=== PATIENT | male | born 1985 | race Caucasian/White ===

== ENCOUNTER 2016-08-23 19:03 | Emergency (ER) | payer BC ==
--- NOTE | ~2016-08-23 | CT71 ---
[facility] A Service of [facility] RADIOLOGY TEXT RESULTS PATIENT: SOTERO HAYNES LOCATION: [facility] : [birth year] UNIT #: [id number] AGE: [address]: Ella Landrum MD SEX: M ORDER DR: [id number] [facility] [place] [facility]. [place], [place] [address] [id number] MR#: [id number] Acc #: [id number] NAME: SOTERO HAYNES : 1985 SEX: M STUDY DATE/TIME: 08/23/2016 19:00 UNIT: [facility] ROOM: STUDY DESCRIPTION: CT Head Wo Contrast Attending Physician: Ella Landrum M.D. Ordering Physician: Samy Sebastian M.D. Primary Care Physician: Hien Jimenez Aprn MEDICAL IMAGING REPORT This report is preliminary unless electronic signature is present EXAM CT brain without contrast HISTORY Hallucinations for 2 months. Headache. TECHNIQUE Axial noncontrast images were obtained from the skull base to the vertex. This CT exam was performed with one or more of the following radiation dose reduction techniques: automatic exposure control, adjustment of mA and/or kV according to patient size, and iterative reconstruction. FINDINGS Ventricular size and configuration are normal. There is no evidence of acute infarct or hemorrhage. There are no extraaxial fluid collections. No mass lesion or mass effect is seen. There are no skull fractures. IMPRESSION Normal noncontrast head CT. Dictated by... José Miguel Lorenzana M.D. THIS IS AN ELECTRONICALLY VERIFIED REPORT José Miguel Lorenzana M.D. at 08/24/2016 3:55 PM DFL/bd TD: 08/24/2016 07:44 JOB #: [id number] [facility] A Service of [facility] RADIOLOGY TEXT RESULTS PATIENT: SOTERO HAYNES LOCATION: [facility] : 85 UNIT #: [id number] AGE: [address]: Ella Landrum MD SEX: M ORDER DR: MEDICAL IMAGING REPORT Page 1 of 1 COPY
--- NOTE | ~2016-08-23 | EKG ---
PATIENT: SOTERO HAYNES UNIT #: [id number] Ventricular Rate: 118 BPM Atrial Rate: 118 BPM P-R Interval: 170 ms QRS Duration: 88 ms Q-T Interval: 316 ms QTC Calculation(Bezet): 442 ms P [place]: 38 degrees Calculated R [place]: 0 degrees Calculated T [place]: 29 degrees Diagnosis Line: Sinus tachycardia Diagnosis Line: Inferior infarct , age undetermined Diagnosis Line: Abnormal ECG Baseline wander Diagnosis Line: No previous ECGs available Diagnosis Line: Confirmed by CALEB HILARIO MD ([id number]) on 08/23/2016 Diagnosis Line: 11:07:25 PM INTERPRETING MD: SULAIMAN BEAUCHAMP
[~2016-08-23 19:03] MED LIST: NAPROSYN375 MG PO; PHENERGAN25 MG PO; PRILOSEC PO; VICODIN 5/500 T1 TAB PO; WAL-ITIN10 MG/TAB PO
[2016-08-23 19:33] LABS: BASOPHIL% 0.3 % (0-2.5); EOSINOPHIL# 0.3 X10e3 (0-0.7); EOSINOPHIL% 1.9 % (0.0-7.0); HEMATOCRIT 45.8 % (38.0-50.0); HEMOGLOBIN 15.3 gm/dL (13.0-16.0); LYMPHOCYTE# 2.7 X10e3 (1.0-3.5); LYMPHOCYTE% 20.9 % (17.0-45.0); MEAN CELL VOLUME 85.3 FL (83-96); MEAN CORPUSCULAR HEMOGLOBIN 28.5 PG (28-34); MEAN CORPUSCULAR HGB CONC 33.4 g/dL (30-36); MEAN PLATELET VOLUME 7.3 FL (6.5-11.5); MONOCYTE# 1.1 X10e3 (0-1.0); NEUTROPHIL% 68.9 % (40-75); PLATELET COUNT 351 X10e3 (140-420); RED BLOOD COUNT 5.37 X10e (3.90-5.60); RED CELL DISTRIBUTION WIDTH 14.2 % (11.0-15.5); WHITE BLOOD COUNT 13.1 X10e3 (4.0-10.5)
[2016-08-23 19:42] LABS: DIFF IND NO
[2016-08-23 19:58] LABS: URINE SOURCE CLEAN CATCH
[2016-08-23 20:01] LABS: ACETAMINOPHEN 10 ug/mL; ALBUMIN SERUM 4.3 g/dL (3.5-5.0); ALKALINE PHOSPHATASE 54 U/L (32-92); ALT (SGPT) 33 U/L (10-40); AST (SGOT) 25 U/L (10-42); BILIRUBIN,TOTAL 0.5 mg/dL (0.2-2.0); BLOOD UREA NITROGEN 11 mg/dL (9-23); BUN/CREATININE RATIO 15.71; CALCIUM SERUM 9.4 mg/dL (8.4-10.2); CARBON DIOXIDE 24 mmol/L (22-31); CHLORIDE 108 mmol/L (100-111); CREATININE SERUM 0.7 mg/dL (0.6-1.4); GLOM FILT RATE Estimated 125.8 mL/min (>60); GLUCOSE FASTING 123 mg/dL (70-110); POTASSIUM 3.1 mmol/L (3.5-5.1); PROTEIN TOTAL SERUM 7.6 g/dL (6.0-8.3); SODIUM 142 mmol/L (135-145)
[2016-08-23 20:04] LABS: ALCOHOL BLOOD <5 mg/dL (0); BILIRUBIN, DIRECT <0.1 mg/dL (0.0-0.2); BILIRUBIN,INDIRECT 0.4 mg/dL (0.0-0.9)
[2016-08-23 20:22] LABS: URINE APPEARANCE CLEAR; URINE BILIRUBIN NEG (NEG); URINE BLOOD NEG (NEG); URINE COLOR YELLOW; URINE GLUCOSE NEG (NEG); URINE KETONE TRACE (NEG); URINE LEUKOCYTE ESTERASE NEG (NEG); URINE NITRATE NEG (NEG); URINE PH 5.5 (5-8); URINE PROTEIN NEG (NEG); URINE SPECIFIC GRAVITY 1.037 (1.003-1.035)
[2016-08-23 20:23] LABS: CULTURE INDICATED? NO
[2016-08-23 20:37] LABS: AMPHETAMINE NEG (NEG); BARBITURATES NEG (NEG); BENZODIAZEPINES NEG (NEG); COCAINE NEG (NEG); MARIJUANA NEG (NEG); OPIATES NEG (NEG); TRICYCLIC ANTIDEPRESSANTS NEG (NEG); U METHADONE NEG (NEG)
== END 2016-08-23 23:46 | disposition home or self-care (01) ==
LOC: CED 19:03
PROVIDERS: Emergency Medicine
DX: F32.3 Major depressive disorder, single episode, severe with psychotic features (principal); E87.6 Hypokalemia; I10 Essential (primary) hypertension; F17.210 Nicotine dependence, cigarettes, uncomplicated
CPT/HCPCS: 36415; 70450; 80048; 80076; 80307; 81003; 85025; 93005; 96361; 96372; 96374; 96375; 99284; G0480; J1100; J1885; J2060; J2765